=== PATIENT | male | born 1990 | race Caucasian/White ===

== ENCOUNTER 2023-01-17 23:02 | Emergency (ER) | payer OTHER ==
[~2023-01-17] VITALS: Ht 160 cm; Wt 56.8 kg
[~2023-01-17 23:02] MED LIST: CELEBREX50 MG; NO HOME MEDICATIONS
[2023-01-17 23:07] VITALS: TEMP 98.2
[2023-01-17] MEDS ORDERED: PRILOSEC10 MG PO (23:54)
[2023-01-18 00:11] LABS: BASO % 0.7 % (0.0-2.0); EOS # 0.1 K/mm3 (0.0-0.7); EOS % 2.2 % (0.0-4.0); GRAN # 2.9 K/mm3 (1.4-6.5); GRAN % 48.3 % (42.2-75.2); HEMATOCRIT 40.3 % (42.0-52.0); HEMOGLOBIN 14.4 g/dl (13.5-18.0); LYMPH # 2.4 K/mm3 (1.2-3.4); LYMPH % 39.6 % (20.0-51.0); MEAN CELL VOLUME 91 fl (80.0-100.0); MEAN CORPUSCULAR HEMOGLOBIN 33 pg (27-31); MEAN CORPUSCULAR HGB CONC 36 g/dl (33.0-37.0); MEAN PLATELET VOLUME 8.7 fl (7.4-10.4); MONO # 0.5 K/mm3 (0.1-0.6); MONO % 8.9 % (1.7-9.3); PLATELET COUNT 270 K/mm3 (130-400); RED BLOOD COUNT 4.41 M/mm3 (4.20-5.60)
[2023-01-18 00:24] LABS: ALBUMIN 4.2 gm/dL (3.5-5.0); BILIRUBIN,TOTAL 0.6 mg/dL (0.2-1.2); CALCIUM 9.1 mg/dL (8.4-10.2); CREATININE, serum 1.01 mg/dL (0.72-1.25); POTASSIUM 3.7 mmol/L (3.5-4.5); TOTAL PROTEIN 6.7 gm/dL (6.2-8.1)
[2023-01-18] MEDS ORDERED: TYLENOL W/COD1 UDTAB PO (01:31)
[2023-01-18 01:51] VITALS: BP 130/89; PULSE 88
== END 2023-01-18 01:51 | disposition home or self-care (01) ==
LOC: COL.ER 23:02
PROVIDERS: Emergency Medicine
DX: K46.9 Unspecified abdominal hernia without obstruction or gangrene (principal); F17.210 Nicotine dependence, cigarettes, uncomplicated; Z28.310 Unvaccinated for COVID-19
CPT/HCPCS: J2270; J2405; Q9967

== ENCOUNTER 2023-08-01 20:05 | Emergency (ER) | payer OTHER ==
[~2023-08-01] VITALS: Ht 160 cm; Wt 56.8 kg
[~2023-08-01 20:05] MED LIST changes: +BIKTARVY 50-201 EACH PO; +MOTRIN 600600 MG/TAB PO; +NORCO 325 MG-51 TAB PO; +PRILOSEC10 MG PO; +TYLENOL W/COD1 UDTAB PO
[2023-08-01 20:20] VITALS: TEMP 99.1
[2023-08-01] MEDS ORDERED: Acetaminophen 500 MG TAB PO ONE (21:15)
[2023-08-01] MEDS ORDERED: diphenhydrAMINE 50 MG/ML 1 ML VIAL IV ONE (21:15)
[2023-08-01] MEDS ORDERED: NS 1,000 ML IV ONE (21:15)
[2023-08-01 21:32] LABS: BASO # 0.1 K/mm3 (0.0-0.2); BASO % 0.8 % (0.0-2.0); EOS # 0.1 K/mm3 (0.0-0.7); EOS % 1.2 % (0.0-4.0); GRAN # 6.2 K/mm3 (1.4-6.5); GRAN % 70.6 % (42.2-75.2); HEMATOCRIT 40.7 % (42.0-52.0); HEMOGLOBIN 14.4 g/dl (13.5-18.0); LYMPH # 1.6 K/mm3 (1.2-3.4); LYMPH % 18.2 % (20.0-51.0); MEAN CELL VOLUME 92 fl (80.0-100.0); MEAN CORPUSCULAR HEMOGLOBIN 33 pg (27-31); MEAN CORPUSCULAR HGB CONC 35 g/dl (33.0-37.0); MEAN PLATELET VOLUME 8.9 fl (7.4-10.4); MONO # 0.8 K/mm3 (0.1-0.6); MONO % 8.9 % (1.7-9.3); PLATELET COUNT 242 K/mm3 (130-400); RED BLOOD COUNT 4.42 M/mm3 (4.20-5.60); REDCELL DISTRIBUTION WIDTH-CV 13.6 % (11.5-14.5)
[2023-08-01 21:44] LABS: ERYTHROCYTE SEDIMENTATION RATE 6 mm/hr (0-15)
[2023-08-01 21:58] LABS: ALBUMIN 3.8 g/dL (3.5-5.0); BILIRUBIN,TOTAL 0.2 mg/dL (0.2-1.2); C-REACTIVE PROTEIN 1.32 mg/dL (0.00-0.50); CALCIUM 9.3 mg/dL (8.4-10.2); CREATININE, serum 0.98 mg/dL (0.72-1.25); POTASSIUM 4.3 mEq/L (3.5-4.5)
[2023-08-01] MEDS ORDERED: levoFLOXacin 750 MG TAB PO ONE (22:45)
[2023-08-01] MEDS ORDERED: LEVAQUIN 750MG750 M1 PO (22:50)
[2023-08-01 23:05] VITALS: BP 121/84; PULSE 88
== END 2023-08-01 23:05 | disposition home or self-care (01) ==
LOC: COL.ER 20:05
PROVIDERS: Emergency Medicine
DX: J32.0 Chronic maxillary sinusitis (principal); Z88.0 Allergy status to penicillin
CPT/HCPCS: J1200; J2765; J7030

== ENCOUNTER 2023-11-13 06:27 | Emergency (ER) | payer OTHER ==
[~2023-11-13] VITALS: Ht 160 cm; Wt 56.8 kg
[~2023-11-13 06:27] MED LIST changes: +LEVAQUIN 750MG750 M1 PO
[2023-11-13 06:41] VITALS: BP 125/76; PULSE 88; TEMP 98.1
== END 2023-11-13 07:25 | disposition home or self-care (01) ==
LOC: COL.ER 06:27
DX: S60.221A Contusion of right hand, initial encounter (principal); W23.0XXA Caught, crushed, jammed, or pinched between moving objects, initial encounter

== ENCOUNTER 2024-02-01 01:45 | Emergency (ER) | payer OTHER ==
[~2024-02-01] VITALS: Ht 160 cm; Wt 56.8 kg
[2024-02-01 01:52] VITALS: BP 139/90; TEMP 99.1
[2024-02-01] MEDS ORDERED: BACTRIM DS 8001 TAB PO (02:40)
[2024-02-01 03:58] VITALS: PULSE 82
== END 2024-02-01 03:58 | disposition home or self-care (01) ==
LOC: COL.ER 01:45
DX: J86.9 Pyothorax without fistula (principal)

== ENCOUNTER 2024-02-03 02:31 | Emergency (ER) | payer OTHER ==
[~2024-02-03] VITALS: Ht 160 cm; Wt 56.8 kg
[~2024-02-03 02:31] MED LIST changes: +BACTRIM DS 8001 TAB PO
[2024-02-03] MEDS ORDERED: cefTRIAXone 1 G,Lidocaine PF 1% 2.1 ML IM ONE (03:00)
[2024-02-03] MEDS ORDERED: CEPHALEXIN500 M1 PO (03:01)
[2024-02-03 03:40] VITALS: BP 136/86; PULSE 87; TEMP 98.5
== END 2024-02-03 03:40 | disposition home or self-care (01) ==
LOC: COL.ER 02:31
DX: L02.213 Cutaneous abscess of chest wall (principal); F17.210 Nicotine dependence, cigarettes, uncomplicated; Z88.0 Allergy status to penicillin
CPT/HCPCS: J0696

== ENCOUNTER 2024-02-04 23:25 | Emergency (ER) | payer OTHER ==
[~2024-02-04] VITALS: Ht 160 cm; Wt 56.8 kg
[~2024-02-04 23:25] MED LIST changes: +CEPHALEXIN500 M1 PO
[2024-02-04] MEDS ORDERED: Home HYDROcodone/Acetaminophen 5/325 MG #4 TABS/PACK PO ONE (23:45)
[2024-02-05 00:06] VITALS: BP 149/93; PULSE 91; TEMP 98.5
== END 2024-02-05 00:06 | disposition home or self-care (01) ==
LOC: COL.ER 23:25
DX: L02.213 Cutaneous abscess of chest wall (principal); Z88.0 Allergy status to penicillin